=== PATIENT | female | born 1990 | race Asian ===

== ENCOUNTER 2019-03-21 05:27 | Emergency (ER) | payer SELFPAY ==
[~2019-03-21] VITALS: Ht 167.6 cm; Wt 55.5 kg
[2019-03-21 05:31] VITALS: Ht 167.6 cm; Wt 55.5 kg
[2019-03-21 08:21] VITALS: BP 92/57
== END 2019-03-21 08:21 | disposition home or self-care (01) ==
LOC: ED 05:27
DX: O99.512 Diseases of the respiratory system complicating pregnancy, second trimester (principal); O21.9 Vomiting of pregnancy, unspecified; J11.1 Influenza due to unidentified influenza virus with other respiratory manifestations; Z3A.17 17 weeks gestation of pregnancy
CPT/HCPCS: 87804; J7030

== ENCOUNTER 2019-03-24 11:47 | Emergency (ER) | payer SELFPAY ==
[~2019-03-24] VITALS: Ht 167.6 cm; Wt 54.5 kg
[2019-03-24 12:16] VITALS: Ht 167.6 cm; Wt 54.5 kg
[2019-03-24 14:48] VITALS: BP 107/67
== END 2019-03-24 14:48 | disposition home or self-care (01) ==
LOC: ED 11:47
DX: O98.512 Other viral diseases complicating pregnancy, second trimester (principal); J10.1 Influenza due to other identified influenza virus with other respiratory manifestations; Z3A.18 18 weeks gestation of pregnancy